=== PATIENT | female | born 1970 | race Hispanic/Latino ===

== ENCOUNTER → 2020-07-10 | Outpatient (CLI) | payer BC | END | disposition home or self-care (01) | LOC: RAH 13:12 | PROVIDERS: ATTEND Internal Medicine | DX: S86.912A Strain of unspecified muscle(s) and tendon(s) at lower leg level, left leg, initial encounter (principal); M17.12 Unilateral primary osteoarthritis, left knee; M25.562 Pain in left knee; X58.XXXA Exposure to other specified factors, initial encounter; Y92.89 Other specified places as the place of occurrence of the external cause; Y93.89 Activity, other specified; Y99.8 Other external cause status | CPT/HCPCS: 73560 ==

== ENCOUNTER 2021-02-12 09:00 | Inpatient (IN) | payer BC ==
[~2021-02-12] VITALS: Ht 154.9 cm; Wt 99.4 kg
[2021-02-12 11:08] LABS: CREATININE 0.9 mg/dL (0.5-1.5)
[2021-02-12 11:09] LABS: BASOPHILS % (AUTO) 0.5 % (0.0-5.0); EOSINOPHILS % (AUTO) 2.3 % (0.0-8.0); LYMPHOCYTES % (AUTO) 20.7 % (21.0-51.0); MEAN CORPUSCULAR HGB CONC 31.6 g/dL (32.0-36.0); MEAN CORPUSCULAR VOLUME 94.8 fL (79-99); MONOCYTES % (AUTO) 6.9 % (3.0-13.0); NEUTROPHILS % (AUTO) 69.3 % (40.0-77.0); PLATELET COUNT (AUTO) 294 K/uL (130-400); RED BLOOD CELL COUNT(AUTO) 4.64 MIL/uL (4.00-5.50); RED CELL DISTRIBUTION WIDTH 13.2 % (11.0-15.5); WHITE BLOOD COUNT (AUTO) 7.4 K/uL (4.8-10.8)
[2021-02-12 11:35] LABS: APPEARANCE,URINE CLEAR (CLEAR); BILIRUBIN,URINE NEGATIVE (NEGATIVE); COLOR,URINE YELLOW (YELLOW); GLUCOSE, URINE (UA) NEGATIVE (NEGATIVE); KETONES,URINE NEGATIVE (NEGATIVE); LEUKOCYTE ESTERASE ,URINE LARGE (NEGATIVE); NITRATE,URINE NEGATIVE (NEGATIVE); OCCULT BLOOD,URINE SMALL (NEGATIVE); PH,URINE 5.5 (5.0-8.0); PROTEIN,URINE NEGATIVE (NEGATIVE); UROBILINOGEN,URINE 0.2 mg/dL (0.2-1.0)
[2021-02-12 11:54] LABS: BACTERIA,URINE Few /HPF (None Seen); WBC,URINE 26-50 /HPF (0-1)
[2021-02-12 12:22] LABS: INR 0.94 (0.85-1.15); PROTHROMBIN TIME 10.3 SEC (9.6-11.6)
[2021-02-16] MEDS ORDERED: ESCI-8 PO (12:12)
[2021-02-16] MEDS ORDERED: PANT40TA54 PO (12:12)
[2021-02-16 12:31] VITALS: BP 173/77
[2021-02-17] VITALS (16 sets, daily range): BP systolic 130–165; BP diastolic 71–89
[2021-02-17] MEDS ORDERED: LACTATED RINGERS 1000ML 1,000 ML IV ONE (10:46)
[2021-02-17] MEDS ORDERED: CEFAZOLIN SODIUM 1 GM VIAL ONE ×5 (10:46→14:06)
[2021-02-17] MEDS: CEFAZOLIN SODIUM 1 GM VIAL IVP ONE ×2 (10:49→14:40)
[2021-02-17] MEDS ORDERED: LIDOCAINE PF 100MG/5ML (2%) SYRINGE 5ML ONE (13:30)
[2021-02-17] MEDS ORDERED: SUCCINYLCHOLINE CHLORIDE 20 MG/ML 10 ML VIAL ONE (13:30)
[2021-02-17] MEDS ORDERED: PROPOFOL 10 MG/ML 20ML VIAL IV ONE ×2 (13:30→15:15)
[2021-02-17] MEDS ORDERED: MIDAZOLAM HCL 1 MG/ML 2ML VIAL ONE (13:31)
[2021-02-17] MEDS ORDERED: GLYCOPYRROLATE 1 MG/5 ML SYRINGE ONE (13:31)
[2021-02-17] MEDS ORDERED: NEOSTIGMINE 5MG/5ML SYR IV ONE (13:31)
[2021-02-17] MEDS ORDERED: ONDANSETRON 4MG INJ ONE (13:31)
[2021-02-17] MEDS ORDERED: DEXAMETHASONE SOD PHOSPHATE 10MG/ML 1ML VIAL ONE (13:31)
[2021-02-17] MEDS ORDERED: FENTANYL CITRATE PF 50 MCG/1 ML 2ML VIAL ONE ×3 (13:32→15:17)
[2021-02-17] MEDS ORDERED: ROCURONIUM 10MG/1ML SYR 10 MG/ML ML ONE (13:32)
[2021-02-17] MEDS ORDERED: TRANEXAMIC ACID 1000MG/10ML ONE ×2 (14:05→14:06)
[2021-02-17] MEDS ORDERED: MEPERIDINE-PF 25 MG/ML SYG ONE ×2 (16:40→17:39)
[2021-02-17] MEDS ORDERED: KETOROLAC 15MG/ML VIAL (15MG/ML) IV PRN (16:45)
[2021-02-17] MEDS ORDERED: ONDANSETRON 4MG INJ IVP PRN (16:45)
[2021-02-17] MEDS: ACETAMINOPHEN 500 MG TABLET PO SCH (16:45)
[2021-02-17] MEDS ORDERED: DiphenhydrAMINE HCL 50 MG/ML VIAL IVP PRN (16:45)
[2021-02-17] MEDS ORDERED: POTASSIUM CHLORIDE 10% ELIXIR 20 MEQ/15 ML UDCUP PO PRN (16:45)
[2021-02-17] MEDS ORDERED: POTASSIUM CHLORIDE 20MEQ/100ML 100 ML IV PRN (16:45)
[2021-02-17] MEDS ORDERED: LIDOCAINE HCL-MPF 1% 2ML VIAL IV PRN (16:45)
[2021-02-17] MEDS ORDERED: TEMAZEPAM 15 MG CAPSULE PO PRN (16:45)
[2021-02-17] MEDS ORDERED: CALCIUM CARB 500MG PO PRN (16:45)
[2021-02-17] MEDS ORDERED: FERROUS FUMARATE 324 MG TABLET PO PRN (16:45)
[2021-02-17] MEDS ORDERED: OXYCODONE HCL 5 MG TAB PO PRN (16:45)
[2021-02-17] MEDS ORDERED: KCL 20 MEQ ERTAB PO PRN (16:45)
[2021-02-17] MEDS: 0.9%NACL 1000ML 1,000 ML IV SCH ×2 (16:45→17:15)
[2021-02-17] MEDS: OXYCODONE HCL 5 MG TAB PO PRN (19:18)
[2021-02-17] MEDS: FAMOTIDINE 20MG TAB PO SCH (20:43)
[2021-02-17] MEDS: PREGABALIN 25 MG CAP PO SCH (20:44)
[2021-02-17] MEDS: CELECOXIB 200 MG CAP PO SCH (20:44)
[2021-02-17] MEDS: NITROFURANTOIN MONOHYD/M-CRYST 100 MG CAPSULE PO SCH (20:44)
[2021-02-17] MEDS: CEFAZOLIN SODIUM 1 GM VIAL IVP SCH (21:01)
[2021-02-18] MEDS: ACETAMINOPHEN 500 MG TABLET PO SCH ×3 (00:46→18:18)
[2021-02-18] MEDS: 0.9%NACL 1000ML 1,000 ML IV SCH ×2 (02:53→12:45)
[2021-02-18 04:38] VITALS: BP 119/72
[2021-02-18 05:36] LABS: HEMATOCRIT 35.7 % (36-48); MEAN CORPUSCULAR HEMOGLOBIN 30.4 pg (27.0-33.0); MEAN CORPUSCULAR HGB CONC 31.9 g/dL (32.0-36.0); MEAN CORPUSCULAR VOLUME 95.2 fL (79-99); RED BLOOD CELL COUNT(AUTO) 3.75 MIL/uL (4.00-5.50); RED CELL DISTRIBUTION WIDTH 12.8 % (11.0-15.5); WHITE BLOOD COUNT (AUTO) 11.1 K/uL (4.8-10.8)
[2021-02-18] MEDS: CEFAZOLIN SODIUM 1 GM VIAL IVP SCH (05:46)
[2021-02-18 06:05] LABS: CREATININE 1.2 mg/dL (0.5-1.5)
[2021-02-18 08:03] VITALS: BP 119/64
[2021-02-18] MEDS: PREGABALIN 25 MG CAP PO SCH ×2 (08:19→20:26)
[2021-02-18] MEDS: CELECOXIB 200 MG CAP PO SCH ×2 (08:19→20:26)
[2021-02-18] MEDS: OXYCODONE HCL 5 MG TAB PO PRN ×2 (08:19→12:57)
[2021-02-18] MEDS: NITROFURANTOIN MONOHYD/M-CRYST 100 MG CAPSULE PO SCH ×2 (08:20→20:26)
[2021-02-18] MEDS: FAMOTIDINE 20MG TAB PO SCH ×2 (08:20→20:26)
[2021-02-18] MEDS: APIXABAN 2.5 MG TABLET PO SCH ×2 (08:20→20:28)
[2021-02-18] MEDS: POLYETHYLENE GLYCOL 3350 17 GM POWD.PACK PO SCH (08:20)
[2021-02-18 12:00] VITALS: BP 136/52
[2021-02-18 16:00] VITALS: BP 149/70
[2021-02-18 19:40] VITALS: BP 144/61
[2021-02-19 00:16] VITALS: BP 127/63
[2021-02-19] MEDS: ACETAMINOPHEN 500 MG TABLET PO SCH ×3 (00:19→16:45)
[2021-02-19 04:28] VITALS: BP 143/73
[2021-02-19] MEDS: OXYCODONE HCL 5 MG TAB PO PRN ×2 (06:41→11:34)
[2021-02-19] MEDS: FAMOTIDINE 20MG TAB PO SCH (07:50)
[2021-02-19] MEDS: CELECOXIB 200 MG CAP PO SCH (07:51)
[2021-02-19] MEDS: APIXABAN 2.5 MG TABLET PO SCH (07:51)
[2021-02-19] MEDS: PREGABALIN 25 MG CAP PO SCH (07:51)
[2021-02-19] MEDS: NITROFURANTOIN MONOHYD/M-CRYST 100 MG CAPSULE PO SCH (07:54)
[2021-02-19] MEDS: POLYETHYLENE GLYCOL 3350 17 GM POWD.PACK PO SCH (07:54)
[2021-02-19] MEDS: TRAMADOL HCL 50 MG TABLET PO PRN ×2 (07:55→13:23)
[2021-02-19 08:16] VITALS: BP 155/77
[2021-02-19 11:24] VITALS: BP 151/92
[2021-02-19 17:14] VITALS: BP 133/74
[2021-02-19] MEDS ORDERED: NITR100C4 PO (18:08)
[2021-02-19] MEDS ORDERED: HYDR-4060 PO (18:08)
[2021-02-19] MEDS ORDERED: APIX2.5T PO (18:08)
[2021-02-20] MEDS ORDERED: BISACODYL 10 MG SUPP.RECT RC PRN (16:45)
== END 2021-02-19 20:00 | disposition home health service (06) | DRG 470 ==
LOC: EDSTATUS 09:00 → DAHIP 02-17 10:22 → 4AH 02-17 18:48
PROVIDERS: ADMIT Orthopaedic Surgery; ATTEND Orthopaedic Surgery
PROC: 0SRC0J9 Replacement of Right Knee Joint with Synthetic Substitute, Cemented, Open Approach (ICD-10-PCS; principal; 2021-02-17 14:18)
DX: M17.11 Unilateral primary osteoarthritis, right knee (principal); Z68.41 Body mass index [BMI] 40.0-44.9, adult; N39.0 Urinary tract infection, site not specified; E66.9 Obesity, unspecified; K21.9 Gastro-esophageal reflux disease without esophagitis; D64.9 Anemia, unspecified; Z20.822 Contact with and (suspected) exposure to COVID-19; F17.210 Nicotine dependence, cigarettes, uncomplicated; B96.20 Unspecified Escherichia coli [E. coli] as the cause of diseases classified elsewhere; Z90.49 Acquired absence of other specified parts of digestive tract; Z90.710 Acquired absence of both cervix and uterus; Z83.3 Family history of diabetes mellitus; Z82.49 Family history of ischemic heart disease and other diseases of the circulatory system
CPT/HCPCS: 36415; 80048; 81001; 85025; 85027; 85610; 87077; 87088; 87186; 87635; 87641; 97039; G0378; J0330; J0690; J1100; J1885; J2001; J2175; J2250; J2405; J2704; J2710; J3010; J3490; J7120